=== PATIENT | female | born 1960 | race Caucasian/White ===

== ENCOUNTER → 2021-02-24 09:34 | Outpatient (CLI) | payer OTHER, SELFPAY ==
--- NOTE | 2021-02-24 | DI.RAD.S_ITS ---
PROCEDURE: XR HIP W PEL IF DONE HARRY MIN 4V INDICATIONS: HIP PAIN TECHNIQUE: AP pelvis with lateral view(s) of the bilateral hip(s). COMPARISON: None. FINDINGS: Bones: No fractures or dislocations. 3 cannulated right femoral neck screws. No evidence of hardware failure or loosening. No plain film evidence of a vascular necrosis. Pelvic ring appears intact. No suspicious bony lesions. Soft tissues: The visualized bowel gas pattern is normal. No suspicious soft tissue calcifications. IMPRESSION: No evidence acute bony abnormality of the pelvis and bilateral hips. If clinical suspicion and/or symptoms persist, further assessment with repeat plain films, or advanced imaging (e.g., CT, MRI, or bone scan) may be helpful for further assessment. Dictated by: Joaquín Harvey M.D. on 02/24/2021 at 10:23 Approved by: Joaquín Harvey M.D. on 02/24/2021 at 10:24
--- NOTE | 2021-02-24 | DI.MRI.S_ITS ---
PROCEDURE: MR LUMBAR SPINE WO CON INDICATIONS: HIP PAIN TECHNIQUE: Noncontrast sagittal T1 spin echo and T2 fast echo, sagittal STIR, axial T1 and T2 fast spin echo through the lumbar spine. Axial and oblique coronal T1 spin echo and STIR through the sacrum. In cases with scoliosis, additional coronal T2 fast spin echo may be performed. COMPARISON: None. FINDINGS: Image quality: Excellent. Alignment and Curvature: There is normal bony alignment. Bone Marrow: Marrow is of normal overall signal. No acute vertebral body compression fractures. No sacral fractures. Spinal Cord: Conus medullaris terminates at the L1 level. Visualized cord demonstrates normal signal and size. Paraspinous Soft Tissues: No paravertebral masses. Incidental small right renal cortical cyst noted. T12-L1: Normal appearance. L1-L2: Normal appearance. L2-L3: Disc height is maintained. There is a small asymmetric right disc bulge minimally effacing the right lateral recess. No central or foraminal stenosis present. L3-L4: Mild disc height loss without disc bulge, central or foraminal stenosis. L4-L5: Unremarkable. No central or foraminal stenosis. L5-S1: Mild disc height loss with circumferential disc bulge present. No central or foraminal stenosis. IMPRESSION: Mild degenerative disc disease at L2-3 results in minimal effacement of the right lateral recess. Approved by: Jerel Desai M.D. on 02/24/2021 at 11:52
== END ==
PROVIDERS: PCP Family Medicine; Referring Provider Neurological Surgery; Visit Provider Neurological Surgery
DX: M51.16 Intervertebral disc disorders with radiculopathy, lumbar region (principal); M25.559 Pain in unspecified hip
CPT/HCPCS: 72148; 73522